=== PATIENT | female | born 1985 | race Caucasian/White ===

== ENCOUNTER 2016-03-30 11:02 | Outpatient (CLI) | payer BC ==
[~2016-03-30] VITALS: Ht 162.6 cm; Wt 101.8 kg
[~2016-03-30 11:02] MED LIST: CEPHALEXIN500 M1 PO; NORCO 325 MG-51 TAB PO; NORCO 325 MG-7.1 TAB PO; TRI-SPRINTEC 281 TAB; ZOLOFT 25MG25 MG PO; ZOLOFT100 MG PO
[2016-03-30 11:19] VITALS: BP 124/77; PULSE 90; TEMP 98.8
[2016-03-30] MEDS ORDERED: PRENATAL (11:29)
[2016-03-30 11:37] VITALS: BP 124/77; PULSE 75; TEMP 98.8
== END 2016-03-30 11:50 | disposition home or self-care (01) ==
LOC: LDRO 11:02
DX: O26.893 Other specified pregnancy related conditions, third trimester (principal); R10.84 Generalized abdominal pain; O99.213 Obesity complicating pregnancy, third trimester; Z3A.37 37 weeks gestation of pregnancy

== ENCOUNTER 2016-04-05 13:43 | Inpatient (IN) | payer BC ==
[2016-04-05] VITALS (19 sets, daily range): BP systolic 105–158; BP diastolic 53–103; PULSE 79–127; TEMP 97.8–98.4
[~2016-04-05] VITALS: Ht 162.6 cm; Wt 104.1 kg
[~2016-04-05 13:43] MED LIST changes: +PRENATAL
[2016-04-05 14:09] LABS: BASO # 0.1 (0.0-0.2); BASO % 0.4 % (0.0-2.0); EOS # 0.1 (0.0-0.7); EOS % 0.6 % (0-4.0); GRAN # 8.5 (1.4-6.5); GRAN % 71.3 % (42.2-75.2); HEMATOCRIT 37.5 % (37.0-47.0); HEMOGLOBIN 12.9 g/dl (12.5-16.0); LYMPH # 2.4 (1.2-3.4); LYMPH % 19.8 % (20.0-51.0); MEAN CELL VOLUME 85 fl (80.0-100.0); MEAN CORPUSCULAR HEMOGLOBIN 29 pg (27.0-31.0); MEAN CORPUSCULAR HGB CONC 34 g/dl (33.0-37.0); MEAN PLATELET VOLUME 10.5 fl (7.4-10.4); MONO # 0.8 (0.1-0.6); MONO % 6.9 % (1.7-9.3); PLATELET COUNT 257 K/mm3 (130-400); RED BLOOD COUNT 4.41 M/mm3 (4.10-5.30); REDCELL DISTRIBUTION WIDTH-CV 12.6 % (11.5-14.5); WHITE BLOOD COUNT 11.9 K/mm3 (4.8-10.8)
[2016-04-06] VITALS: BP 125/76; PULSE 97; TEMP 98.8
[2016-04-06 04:00] VITALS: BP 118/74; PULSE 72; TEMP 98.2
[2016-04-06 08:30] VITALS: BP 157/98; PULSE 78; TEMP 98
[2016-04-06 11:30] VITALS: BP 144/86; PULSE 72
[2016-04-06 14:55] VITALS: BP 141/94; PULSE 82; TEMP 98.5
[2016-04-06 22:00] VITALS: BP 115/79; PULSE 74; TEMP 98.4
[2016-04-07 07:27] VITALS: BP 142/90; PULSE 77; TEMP 98
[2016-04-07] MEDS ORDERED: IBU600 MG PO (08:47)
== END 2016-04-07 14:20 | disposition home or self-care (01) | DRG 775 ==
LOC: LDRO 13:43 → LDR 13:45 → OB 19:00
PROVIDERS: Obstetrics & Gynecology
PROC: 10E0XZZ Delivery of Products of Conception, External Approach (ICD-10-PCS; principal; 2016-04-05)
DX: O70.1 Second degree perineal laceration during delivery (principal); Z3A.38 38 weeks gestation of pregnancy; Z37.0 Single live birth
CPT/HCPCS: J2400; J2590; J7120

== ENCOUNTER 2018-03-13 07:13 | Inpatient (IN) | payer BC ==
[~2018-03-13] VITALS: Ht 162.6 cm; Wt 96.4 kg
[2018-03-13] VITALS (24 sets, daily range): BP systolic 106–170; BP diastolic 60–90; PULSE 69–125; TEMP 97.8–98.8
[~2018-03-13 07:13] MED LIST changes: +IBU600 MG PO
[2018-03-13 08:32] LABS: HEMATOCRIT 37.8 % (37.0-47.0); HEMOGLOBIN 12.8 g/dl (12.5-16.0); MEAN CELL VOLUME 89 fl (80.0-100.0); MEAN CORPUSCULAR HEMOGLOBIN 30 pg (27.0-31.0); MEAN CORPUSCULAR HGB CONC 34 g/dl (33.0-37.0); MEAN PLATELET VOLUME 10.4 fl (7.4-10.4); PLATELET COUNT 242 K/mm3 (130-400); RED BLOOD COUNT 4.25 M/mm3 (4.10-5.30); REDCELL DISTRIBUTION WIDTH-CV 12.8 % (11.5-14.5)
[2018-03-13 08:48] LABS: LYMPHOCYTE 29 % (20.0-51.0); NEUTROPHILS 68 % (42.0-75.2); PLATELET ESTIMATE NORMAL (NORMAL)
[2018-03-14 00:20] VITALS: BP 130/79; PULSE 72; TEMP 98.3
[2018-03-14 05:00] VITALS: BP 131/79; PULSE 77; TEMP 99.1
[2018-03-14] MEDS ORDERED: MOTRIN 600600 MG/TAB PO (08:57)
[2018-03-14 09:02] VITALS: BP 136/81; PULSE 94; TEMP 99.2
[2018-03-14 15:15] VITALS: TEMP 100.1
== END 2018-03-14 15:30 | disposition home or self-care (01) | DRG 807 ==
LOC: LDR 07:13 → OB 13:30 → LDR 14:08 → OB 03-14 15:30
PROVIDERS: Obstetrics & Gynecology
PROC: 10E0XZZ Delivery of Products of Conception, External Approach (ICD-10-PCS; principal; 2018-03-13)
PROC: 0KQM0ZZ Repair Perineum Muscle, Open Approach (ICD-10-PCS; 2018-03-13)
PROC: 10907ZC Drainage of Amniotic Fluid, Therapeutic from Products of Conception, Via Natural or Artificial Opening (ICD-10-PCS; 2018-03-13)
PROC: 3E033VJ Introduction of Other Hormone into Peripheral Vein, Percutaneous Approach (ICD-10-PCS; 2018-03-13)
DX: O70.1 Second degree perineal laceration during delivery (principal); Z37.0 Single live birth; O99.344 Other mental disorders complicating childbirth; F41.8 Other specified anxiety disorders; Z3A.39 39 weeks gestation of pregnancy; J45.909 Unspecified asthma, uncomplicated; O69.81X0 Labor and delivery complicated by cord around neck, without compression, not applicable or unspecified
CPT/HCPCS: J2590; J2795; J7120

== ENCOUNTER → 2018-04-02 | Outpatient (CLI) | payer BC ==
[~2018-04-02] MED LIST changes: +MOTRIN 600600 MG/TAB PO
--- NOTE | 2018-04-02 11:36 | NUR ---
Yomaira Marden into clinic with 20 day old Pillo Marden for evaluation. Pillo's born on [birth year] and weighed 8# 11.5 oz at . Yomaira states Pillo is nursing for approx 9 times in a day and reports diapers to be WNL. Yomaira expresses concerns regarding sore nipples with initial latch and making noises while suckling. Yomaira states she has been using a breast shield for the last week d/t sore nipples; however, does not need it d/t flat or enverted nipples. Today's prefeed weight was 10 # 4.5 oz. While in the clinic, Pillo nursed off the left breast for 10 min and gained 110 g, he then from the right breast and gained another 32 g. Good positioning and latch noted. LC offered suggestions on supporting breast and infant better while feeding so infant is not sliding down and making nipple sore. LC also suggested Yomaira not use the shield and work on getting more tissue into infants mouth when initially latching. LC did not observe any clicks or concerning sounds when was nursing. Lots of audible swallows noted. No obvious tongue ties noted. Plan of care: Continue to feed ad kait without use of breast shield. Return to clinic as desired for weight check or for further concerns.
== END ==
LOC: LAC 09:52
DX: Z39.1 Encounter for care and examination of lactating mother (principal); Z71.89 Other specified counseling

== ENCOUNTER 2018-09-27 17:53 | Emergency (ER) | payer BC ==
[~2018-09-27] VITALS: Ht 162.6 cm; Wt 86.4 kg
[2018-09-27 18:01] VITALS: TEMP 99.2
[2018-09-27 18:40] LABS: BASO # 0.1 (0.0-0.2); BASO % 0.8 % (0.0-2.0); EOS # 0.2 (0.0-0.7); EOS % 1.6 % (0-4.0); GRAN # 6.6 (1.4-6.5); GRAN % 71.5 % (42.2-75.2); HEMATOCRIT 42.4 % (37.0-47.0); HEMOGLOBIN 14.5 g/dl (12.5-16.0); LYMPH # 1.8 (1.2-3.4); LYMPH % 19.1 % (20.0-51.0); MEAN CELL VOLUME 85 fl (80.0-100.0); MEAN CORPUSCULAR HEMOGLOBIN 29 pg (27.0-31.0); MEAN CORPUSCULAR HGB CONC 34 g/dl (33.0-37.0); MEAN PLATELET VOLUME 9.1 fl (7.4-10.4); MONO # 0.6 (0.1-0.6); MONO % 6.6 % (1.7-9.3); PLATELET COUNT 303 K/mm3 (130-400); RED BLOOD COUNT 4.97 M/mm3 (4.10-5.30); REDCELL DISTRIBUTION WIDTH-CV 11.9 % (11.5-14.5)
[2018-09-27 18:53] LABS: ALBUMIN 4.5 gm/dL (3.5-5.0); BILIRUBIN,TOTAL 0.4 mg/dL (0.0-1.0); CALCIUM 9.6 mg/dL (8.4-10.2); CREATININE, serum 0.6 (0.52-1.25); POTASSIUM 3.6 mmol/L (3.4-5.0); TOTAL PROTEIN 7.8 gm/dL (6.4-8.2)
[2018-09-27 19:08] LABS: COLLECTION METHOD CLEAN CATCH
[2018-09-27 19:13] LABS: PH 6 (5-8); SQUAMOUS EPITHELIAL None Seen /hpf; URINE APPEARANCE Clear; URINE BACTERIA None Seen /hpf; URINE BILIRUBIN Negative (NEGATIVE); URINE BLOOD Negative (NEGATIVE); URINE COLOR Colorless; URINE GLUCOSE Negative (NEGATIVE); URINE KETONE Trace (NEGATIVE); URINE LEUKOCYTE ESTERASE Negative (NEGATIVE); URINE NITRATE Negative (NEGATIVE); URINE PROTEIN(semi-quant) Negative (NEGATIVE); URINE RBC None Seen /hpf; URINE UROBILINOGEN Negative (NEGATIVE)
[2018-09-27 19:23] LABS: TSH w REFLEX 1.19 uIU/mL (0.465-4.680)
[2018-09-27 19:48] VITALS: BP 127/88; PULSE 90
== END 2018-09-27 19:49 | disposition home or self-care (01) ==
LOC: COL.ER 17:53
PROVIDERS: Physician Assistant
DX: F41.1 Generalized anxiety disorder (principal); Z90.49 Acquired absence of other specified parts of digestive tract

== ENCOUNTER 2018-09-29 11:33 | Emergency (ER) | payer BC ==
[~2018-09-29] VITALS: Ht 162.6 cm; Wt 85.0 kg
[2018-09-29 11:39] VITALS: TEMP 98.5
[2018-09-29] MEDS ORDERED: ZOLOFT 50MG50 MG PO (11:51)
[2018-09-29] MEDS ORDERED: ATARAX 25MG25 MG/TAB PO (11:52)
[2018-09-29] MEDS ORDERED: CEPHALEXIN500 M1 PO (11:55)
[2018-09-29 12:04] LABS: BASO # 0.1 (0.0-0.2); BASO % 0.7 % (0.0-2.0); EOS # 0.1 (0.0-0.7); EOS % 1.3 % (0-4.0); GRAN # 5.7 (1.4-6.5); GRAN % 66.8 % (42.2-75.2); HEMATOCRIT 42.8 % (37.0-47.0); HEMOGLOBIN 14.4 g/dl (12.5-16.0); LYMPH % 23.2 % (20.0-51.0); MEAN CELL VOLUME 86 fl (80.0-100.0); MEAN CORPUSCULAR HEMOGLOBIN 29 pg (27.0-31.0); MEAN CORPUSCULAR HGB CONC 34 g/dl (33.0-37.0); MEAN PLATELET VOLUME 9.3 fl (7.4-10.4); MONO # 0.6 (0.1-0.6); MONO % 7.4 % (1.7-9.3); PLATELET COUNT 325 K/mm3 (130-400); RED BLOOD COUNT 4.96 M/mm3 (4.10-5.30)
[2018-09-29] MEDS ORDERED: PRILOSEC 20MG20 MG PO (14:03)
[2018-09-29 14:07] VITALS: BP 144/83; PULSE 73
== END 2018-09-29 14:17 | disposition home or self-care (01) ==
LOC: COL.ER 11:33
PROVIDERS: Emergency Medicine
DX: F41.9 Anxiety disorder, unspecified (principal); F32.9 Major depressive disorder, single episode, unspecified; R00.2 Palpitations
CPT/HCPCS: C9113; J7030

== ENCOUNTER → 2019-05-26 | Outpatient (CLI) | payer BC ==
[~2019-05-26] MED LIST changes: +ATARAX 25MG25 MG/TAB PO; +PRILOSEC 20MG20 MG PO; +ZOLOFT 50MG50 MG PO
== END ==
LOC: COL.LAB 15:47
DX: N91.2 Amenorrhea, unspecified (principal)